=== PATIENT | male | born 1990 | race Caucasian/White ===

== ENCOUNTER 2020-04-22 21:44 | Emergency (ER) | payer OTHER, MEDICAID ==
[~2020-04-22] VITALS: Ht 182.9 cm; Wt 81.6 kg
[2020-04-22 21:44] VITALS: BP_SYST 113
[2020-04-22] MEDS ORDERED: IBUPROFEN 800 MG TABLET PO ONE (22:00)
[2020-04-22] MEDS ORDERED: TRAZ-219 PO (22:17)
[2020-04-22] MEDS ORDERED: QUET300T2 PO (22:17)
[2020-04-22] MEDS ORDERED: ALPR2TAB2 PO (22:18)
[2020-04-22 22:30] VITALS: BP_SYST 113
== END 2020-04-22 22:30 ==
LOC: SED 21:44
DX: S20.212A Contusion of left front wall of thorax, initial encounter (principal); M25.511 Pain in right shoulder; F41.9 Anxiety disorder, unspecified; F12.90 Cannabis use, unspecified, uncomplicated; V89.2XXA Person injured in unspecified motor-vehicle accident, traffic, initial encounter; Y93.89 Activity, other specified; Y92.413 State road as the place of occurrence of the external cause; Y99.8 Other external cause status
CPT/HCPCS: 71045; 73030; 99284

== ENCOUNTER 2020-11-27 17:43 | Emergency (ER) | payer MEDICAID ==
[~2020-11-27] VITALS: Ht 182.9 cm; Wt 81.6 kg
[~2020-11-27 17:43] MED LIST: ALPR2TAB2 PO; QUET300T2 PO; TRAZ-251 PO
[2020-11-27 17:45] VITALS: BP_SYST 137
[2020-11-27] MEDS ORDERED: ALPRAZolam 0.25 MG TABLET PO ONE (18:30)
[2020-11-27] MEDS ORDERED: ALPRAZolam 0.25 MG TABLET ONE (18:36)
[2020-11-27 19:49] VITALS: BP_SYST 137
== END 2020-11-27 19:49 | disposition home or self-care (01) ==
LOC: SED 17:43
DX: F41.9 Anxiety disorder, unspecified (principal); Z79.899 Other long term (current) drug therapy
CPT/HCPCS: 99283